=== PATIENT | female | born 1995 | race Two or more races ===

== ENCOUNTER 2018-07-11 14:01 | Emergency (ER) | payer SELFPAY ==
[~2018-07-11] VITALS: Ht 157.5 cm; Wt 100.0 kg
[2018-07-11 18:22] VITALS: BP 144/90
== END 2018-07-11 18:26 | disposition home or self-care (01) ==
LOC: ER 14:26
DX: R05 Cough (principal); J45.909 Unspecified asthma, uncomplicated; F99 Mental disorder, not otherwise specified; R45.851 Suicidal ideations
CPT/HCPCS: 71045; 99283

== ENCOUNTER 2020-06-12 22:31 | Emergency (ER) | payer MEDICAID ==
[~2020-06-12] VITALS: Ht 172.7 cm; Wt 210.0 kg
[2020-06-12] MEDS ORDERED: KETOROLAC 30MG/ML VIAL IM ONE (23:00)
[2020-06-13 00:21] LABS: CHLORIDE 105 mEq/L (98-107)
[2020-06-13 00:24] LABS: BASOPHILS % 0.2 % (0.0-2.0); EOSINOPHILS % 1.7 % (0.0-5.0); HEMATOCRIT. 36.1 % (36.0-48.0); HEMOGLOBIN. 11.8 g/dL (12.0-16.0); LYMPHOCYTES % 27.1 % (20.0-50.0); MEAN CORPUSCULAR HEMOGLOBIN 28.9 pg (28.0-32.0); MEAN CORPUSCULAR VOLUME 88.1 fL (81.0-99.0); MEAN PLATELET VOLUME 11.6 fl (7.4-10.4); MONOCYTES % 7.4 % (2.0-8.0); NEUTROPHILS % 63.6 % (40.0-76.0); PLATELET 206 x1000/uL (130-400); RED CELL DISTRIBUTION WIDTH 16.9 % (11.6-14.6)
[2020-06-13 05:16] LABS: CLARITY URINE CLEAR (CLEAR); COLOR URINE YELLOW (YELLOW); KETONES URINE NEGATIVE (NEGATIVE); LEUKOCYTE ESTERASE URINE TRACE (NEGATIVE); NITRITE URINE NEGATIVE (NEGATIVE); OCCULT BLOOD URINE NEGATIVE (NEGATIVE); PH URINE 6.5 (4.5-8.0); PROTEIN URINE NEGATIVE (NEGATIVE); SPECIFIC GRAVITY URINE 1.012 (1.005-1.030); UROBILINOGEN URINE 0.2 E.U./dL (0.2-1.0)
[2020-06-13 05:23] VITALS: BP 141/76
== END 2020-06-13 05:23 | disposition home or self-care (01) ==
LOC: ER 22:31
DX: N83.299 Other ovarian cyst, unspecified side (principal); F20.9 Schizophrenia, unspecified; I10 Essential (primary) hypertension; F41.9 Anxiety disorder, unspecified; F32.9 Major depressive disorder, single episode, unspecified; J45.909 Unspecified asthma, uncomplicated; E66.01 Morbid (severe) obesity due to excess calories; Z68.45 Body mass index [BMI] 70 or greater, adult
CPT/HCPCS: 36415; 76856; 80053; 81003; 85025; 86850; 86900; 86901; 93005; 96372; 99285; J1885

== ENCOUNTER 2020-08-07 08:46 | Emergency (ER) | payer MEDICAID ==
[~2020-08-07] VITALS: Ht 175.3 cm; Wt 137.0 kg
[2020-08-07 09:40] LABS: BASOPHILS % 0.7 % (0.0-2.0); EOSINOPHILS % 1.8 % (0.0-5.0); HEMATOCRIT. 35.3 % (36.0-48.0); HEMOGLOBIN. 11.6 g/dL (12.0-16.0); LYMPHOCYTES % 30.6 % (20.0-50.0); MEAN CORPUSCULAR HEMOGLOBIN 27.9 pg (28.0-32.0); MEAN CORPUSCULAR VOLUME 84.7 fL (81.0-99.0); MEAN PLATELET VOLUME 10.2 fl (7.4-10.4); MONOCYTES % 5.7 % (2.0-8.0); NEUTROPHILS % 61.2 % (40.0-76.0); PLATELET 181 x1000/uL (130-400); RED BLOOD CELL COUNT 4.17 mill/uL (4.2-5.4); RED CELL DISTRIBUTION WIDTH 18.5 % (11.6-14.6)
[2020-08-07 09:46] LABS: CHLORIDE 108 mEq/L (98-107)
[2020-08-07 09:53] LABS: HCG SCREEN NEGATIVE
[2020-08-07] MEDS ORDERED: MORPHINE SULFATE 4 MG/ML CPJ (NOT FOR IM USE) IV STA (10:48)
[2020-08-07] MEDS ORDERED: ONDANSETRON HCL 4MG/2ML INJ IV STA (10:48)
[2020-08-07 11:07] LABS: CLARITY URINE CLOUDY (CLEAR); COLOR URINE YELLOW (YELLOW); KETONES URINE NEGATIVE (NEGATIVE); LEUKOCYTE ESTERASE URINE TRACE (NEGATIVE); NITRITE URINE NEGATIVE (NEGATIVE); OCCULT BLOOD URINE 1+ (NEGATIVE); PH URINE 5.5 (4.5-8.0); PROTEIN URINE NEGATIVE (NEGATIVE); SPECIFIC GRAVITY URINE 1.024 (1.005-1.030); UROBILINOGEN URINE 0.2 E.U./dL (0.2-1.0)
[2020-08-07] MEDS ORDERED: MORPHINE SULFATE 2 MG/ML CPJ (NOT FOR IM USE) IV NR (13:30)
[2020-08-07] MEDS ORDERED: KETOROLAC 30MG/ML VIAL IV NR (14:00)
[2020-08-07] MEDS ORDERED: CEFTRIAXONE 1 G PREMIX 50 ML IV NR (14:00)
[2020-08-07] MEDS: HYDROCODONE/ACETAMINOPHEN 5/325MG TABLET PO ONE (15:30)
[2020-08-07] MEDS ORDERED: IOHEXOL-300 100 ML BOTTLE ONE (16:01)
[2020-08-07 20:14] VITALS: BP 134/95
== END 2020-08-07 20:26 | disposition home or self-care (01) ==
LOC: ER 08:46
DX: R10.30 Lower abdominal pain, unspecified (principal); G89.29 Other chronic pain; N83.209 Unspecified ovarian cyst, unspecified side; I10 Essential (primary) hypertension; F20.9 Schizophrenia, unspecified
CPT/HCPCS: 36415; 74177; 76856; 80053; 81003; 83690; 84703; 85025; 93005; 96365; 96375; 96376; 99285; J0696; J1885; J2270; J2405; Q9967; 76830

== ENCOUNTER 2020-08-11 00:04 | Emergency (ER) | payer MEDICAID, OTHER ==
[~2020-08-11] VITALS: Ht 172.7 cm; Wt 155.0 kg
[2020-08-11] MEDS ORDERED: CEPH-569 MT (07:04)
[2020-08-11 07:27] VITALS: BP 140/79
== END 2020-08-11 07:30 | disposition home or self-care (01) ==
LOC: ER 00:04
DX: N30.90 Cystitis, unspecified without hematuria (principal)
CPT/HCPCS: 93005; 99283

== ENCOUNTER 2020-09-02 21:36 | Emergency (ER) | payer MEDICAID ==
[~2020-09-02] VITALS: Ht 172.7 cm; Wt 110.0 kg
[~2020-09-02 21:36] MED LIST: CEPH-569 MT
[2020-09-02] MEDS: ONDANSETRON 4MG ODT PO ONE (22:35)
[2020-09-02] MEDS: CLONIDINE 0.2MG TABLET PO ONE (23:20)
[2020-09-02] MEDS: FAMOTIDINE 20MG TABLET PO ONE (23:20)
[2020-09-02 23:56] VITALS: BP 149/89
== END 2020-09-03 00:55 | disposition home or self-care (01) ==
LOC: ER 21:36
DX: K52.9 Noninfective gastroenteritis and colitis, unspecified (principal); I10 Essential (primary) hypertension; J45.909 Unspecified asthma, uncomplicated
CPT/HCPCS: 93005; 99284; C9803; Q0162; U0003